=== PATIENT | male | born 1975 | race Two or more races ===

== ENCOUNTER 2018-02-05 16:02 | Emergency (ER) | payer OTHER ==
[~2018-02-05] VITALS: Ht 177.8 cm; Wt 86.2 kg
[2018-02-05] MEDS ORDERED: NALOXONE HCL 1MG/ML 2ML SYRINGE IV ONE (16:05)
[2018-02-05] MEDS ORDERED: EPINEPHrine HCL 1 MG/10 ML SYRG IV ONE (16:05)
[2018-02-05] MEDS ORDERED: CALCIUM GLUC 4.65 MEQ/10ML IV ONE (16:05)
[2018-02-05] MEDS ORDERED: DEXTROSE (50%) 50ML SYRG IV ONE (16:05)
[2018-02-05] MEDS ORDERED: D5W 5% 100 ML BAG IV ONE (16:05)
[2018-02-05] MEDS ORDERED: FLUMAZENIL 0.1 MG/ML INJ 10ML MDV IV ONE (16:07)
[2018-02-05] MEDS ORDERED: SODIUM BICARBONATE 8.4% INJ 50ML SYRINGE ONE (16:12)
[2018-02-05] MEDS ORDERED: NOREPINEPHRINE 8 MG/250ML KIT 250 ML IV ONE (16:24)
[2018-02-05] MEDS ORDERED: EPINEPHrine HCL 1 MG/10 ML SYRG ONE ×2 (16:24)
== END 2018-02-05 20:43 | disposition expired ==
LOC: EDBD 16:02 → ER 16:04
DX: I46.9 Cardiac arrest, cause unspecified (principal)
CPT/HCPCS: 92950; 99285; J0171; J0610; J2310; J7042; J7060